=== PATIENT | female | born 1945 | race Caucasian/White ===

== ENCOUNTER 2024-02-14 12:50 | Emergency (ER) | payer MEDICARE ==
[~2024-02-14] VITALS: Ht 154.9 cm; Wt 54.4 kg
[2024-02-14 12:50] VITALS: BP_SYST 97; PULSE 86; RESP 20; TEMP 98.9; O2SAT 94
[2024-02-14 14:50] LABS: BASOPHILS % (AUTO) 0.2 % (0.0-2.0); EOSINOPHILS # (AUTO) 0.1 K/uL (0.0-0.4); EOSINOPHILS % (AUTO) 0.5 % (0.0-4.0); HEMATOCRIT 30.1 % (36-48); HEMOGLOBIN 10.1 g/dL (12.0-16.0); LYMPHOCYTES # (AUTO) 1.4 K/uL (1.0-5.5); LYMPHOCYTES % (AUTO) 11.8 % (20.5-51.5); MEAN CORPUSCULAR HEMOGLOBIN 31 pg (27-31); MEAN CORPUSCULAR HGB CONC 34 % (32-36); MEAN CORPUSCULAR VOLUME 91 fL (79.0-98.0); MONOCYTES # (AUTO) 1.1 K/uL (0.0-1.0); MONOCYTES % (AUTO) 9.3 % (1.7-9.3); NEUTROPHILS # (AUTO) 8.9 K/uL (1.8-7.7); NEUTROPHILS % (AUTO) 78.2 % (40.0-70.0); PLATELET COUNT (AUTO) 304 K/uL (130-430); RED BLOOD CELL COUNT(AUTO) 3.31 MIL/uL (4.2-6.2); RED CELL DISTRIBUTION WIDTH 14.3 % (9.0-15.0); WHITE BLOOD COUNT (AUTO) 11.4 K/uL (4.8-10.8)
[2024-02-14 15:43] LABS: BILIRUBIN,URINE NEGATIVE (NEGATIVE); BLOOD, URINE 2+ (NEGATIVE); CLARITY/URINE CLOUDY (CLEAR); COLOR,URINE YELLOW (YELLOW); GLUCOSE,URINE NEGATIVE (NEGATIVE); KETONES,URINE NEGATIVE (NEGATIVE); LEUKOCYTE ESTERASE ,URINE 1+ (NEGATIVE); NITRITE, URINE POSITIVE (NEGATIVE); PROTEIN URINE NEGATIVE (NEGATIVE)
[2024-02-14 15:50] LABS: ANION GAP 7 (5-15); CALCIUM 8.9 mg/dL (8.4-11.0); CARBON DIOXIDE 28 mmol/L (23-29); CHLORIDE 95 mmol/L (98-107); CREATININE 0.43 mg/dL (0.55-1.30); GLUCOSE 110 mg/dL (74-106); POTASSIUM 3.8 mmol/L (3.5-5.1); SODIUM SERUM 130 mmol/L (136-145); UREA NITROGEN, BLOOD 17 mg/dL (8-21)
[2024-02-14 15:56] LABS: ALCOHOL, BLOOD < 3 mg/dL (<10)
[2024-02-14 16:22] LABS: BARBITURATE, URINE NEGATIVE (NEG <=200); BENZODIAZEPINE, URINE NEGATIVE (NEG <=150); CANNABINOID, URINE NEGATIVE (NEG <=50); COCAINE, URINE NEGATIVE (NEG <=150); METHAMPHETAMINES SCREEN,URINE NEGATIVE (NEG <=500); OPIATE, URINE NEGATIVE (NEG <=100); PHENCYCLIDINE SCREEN,URINE NEGATIVE (NEG <=25); URINE AMPHETAMINE NEGATIVE (NEG <=500); URINE METHADONE NEGATIVE (NEG <=200); URINE OXYCODONE SCREEN NEGATIVE (NEG <=100)
[2024-02-14 16:23] LABS: UR TRICYCLIC ANTIDEPRESSANTS NEGATIVE (NEG <=300)
[2024-02-14 16:37] LABS: BACTERIA,URINE MANY /HPF (None Seen); WBC,URINE 20-50 /HPF (0-3)
[2024-02-14 16:38] LABS: MUCUS,URINE None Seen /LPF (None Seen)
[2024-02-14] MEDS ORDERED: BACLOFEN 10 MG TABLET PO ONE (17:30)
[2024-02-14] MEDS: BACLOFEN 10 MG TABLET PO ONE ×4 (17:51→17:57)
[2024-02-14] MEDS: GABAPENTIN 100 MG CAPSULE PO ONE ×3 (17:51→17:57)
[2024-02-14] MEDS: cefTRIAXone 1 GM VIAL IV ONE (17:52)
[2024-02-14] MEDS: cefTRIAXone 1 GM in D5W 50 ML IV ONE (18:01)
[2024-02-14] MEDS: MAGNESIUM OXIDE 400 MG TABLET PO ONE (18:28)
[2024-02-14 20:19] VITALS: BP_SYST 116; PULSE 85; RESP 16; TEMP 98.8; O2SAT 94
[2024-02-14] MEDS ORDERED: OXcarbazepine 150 MG TABLET(TRILEPTAL) PO ONE (21:00)
== END 2024-02-14 20:19 | disposition short-term general hospital (02) ==
LOC: SED 12:50
DX: N39.0 Urinary tract infection, site not specified (principal); R53.1 Weakness; Z20.822 Contact with and (suspected) exposure to COVID-19; R41.82 Altered mental status, unspecified; E87.1 Hypo-osmolality and hyponatremia; E83.42 Hypomagnesemia; D72.828 Other elevated white blood cell count; G58.8 Other specified mononeuropathies
CPT/HCPCS: 99285; 96365; 70450; 71045; 87426; 80307; 80048; 81001; 83735; 85025; 87086; 84484; 36415; 93005; G0482; J0696; 81000; 81015